=== PATIENT | female | born 1990 | race American Indian/Alaskan Native ===

== ENCOUNTER 2024-02-23 12:58 | Emergency (ER) | payer OTHER ==
[~2024-02-23] VITALS: Ht 152.4 cm; Wt 68.0 kg
[2024-02-23 14:19] LABS: SARS-CoV-2, RNA, NAAT NEGATIVE SARS CoV-2 (NEGATIVE)
[2024-02-23 14:23] LABS: INFLUENZA TYPE A Negative For Type A (NEGATIVE); INFLUENZA TYPE B Negative For Type B (NEGATIVE); RAPID GROUP A STREP negative (NEGATIVE)
[2024-02-23 14:36] LABS: ADD UA MICROSCOPIC YES; APPEARANCE,URINE CLEAR (CLEAR); BILIRUBIN,URINE NEGATIVE (NEGATIVE); COLOR,URINE YELLOW (YELLOW); GLUCOSE, URINE (UA) NEGATIVE (NEGATIVE); KETONES,URINE NEGATIVE (NEGATIVE); LEUKOCYTE ESTERASE ,URINE NEGATIVE Leu/uL (NEGATIVE); NITRATE,URINE NEGATIVE (NEGATIVE); OCCULT BLOOD,URINE NEGATIVE (NEGATIVE); PH,URINE 5.5 (5.0-8.0); PROTEIN,URINE 10 mg/dL (NEGATIVE); UROBILINOGEN,URINE 0.2 mg/dL (0.2-1.0)
[2024-02-23 14:38] LABS: MUCUS,URINE RARE LPF (None Seen); SQUAMOUS EPITHELIAL CELL,UR RARE /HPF (0-2)
[2024-02-23 14:41] LABS: HCG,QUALITATIVE URINE POSITIVE (NEGATIVE)
[2024-02-23 15:33] VITALS: BP 128/56; PULSE 87; RESP 18; O2SAT 98
== END 2024-02-23 15:37 | disposition home or self-care (01) ==
LOC: EDH 12:58
DX: O99.511 Diseases of the respiratory system complicating pregnancy, first trimester (principal); B34.9 Viral infection, unspecified; Z3A.01 Less than 8 weeks gestation of pregnancy; Z20.822 Contact with and (suspected) exposure to COVID-19
CPT/HCPCS: 81001; 81025; 87635; 87804; 87880

== ENCOUNTER → 2024-04-07 | Outpatient (CLI) | payer OTHER | END | disposition home or self-care (01) | LOC: LAB 14:50 | PROVIDERS: ATTEND Obstetrics & Gynecology | DX: Z36.9 Encounter for antenatal screening, unspecified (principal) | CPT/HCPCS: 36415; 87491; 87591; 88175 ==

== ENCOUNTER → 2024-04-23 | Outpatient (CLI) | payer OTHER ==
[2024-04-23 09:12] LABS: AMPHET/METH SCREEN,URINE NEGATIVE (NEGATIVE); BARBITURATE SCREEN, URINE NEGATIVE (NEGATIVE); BENZODIAZEPINES SCREEN,URINE NEGATIVE (NEGATIVE); CANNABINOID SCREEN,URINE NEGATIVE (NEGATIVE); COCAINE SCREEN,URINE NEGATIVE (NEGATIVE); OPIATE SCREEN,URINE NEGATIVE (NEGATIVE); PHENCYCLIDINE SCREEN,URINE NEGATIVE (NEGATIVE)
[2024-04-23 09:25] LABS: THYROID STIMULATING HORMONE 4.98 uIU/mL (0.36-3.74)
[2024-04-23 10:07] LABS: HIV 1&2 ANTIBODY Non-Reactive (Negative); HIV-1 p24 Antigen Non-Reactive (Negative)
== END | disposition home or self-care (01) ==
LOC: LAB 04-22 15:33
PROVIDERS: ATTEND Obstetrics & Gynecology
DX: Z34.90 Encounter for supervision of normal pregnancy, unspecified, unspecified trimester (principal); Z3A.09 9 weeks gestation of pregnancy
CPT/HCPCS: 36415; 80305; 82947; 84443; 86701; 87086; 87390

== ENCOUNTER → 2024-05-14 | Outpatient (CLI) | payer OTHER ==
[2024-05-14 10:30] LABS: BASOPHILS # (AUTO) 0.02 K/uL (0.00-0.20); BASOPHILS % (AUTO) 0.2 % (0.0-5.0); EOSINOPHILS # (AUTO) 0.16 K/uL (0.00-0.70); EOSINOPHILS % (AUTO) 1.9 % (0.0-8.0); HEMATOCRIT 34.8 % (36-48); IMMATURE GRANULOCYTE ABSOLUTE 0.02 K/uL (0-1); LYMPHOCYTES % (AUTO) 23.3 % (21.0-51.0); MEAN CORPUSCULAR HEMOGLOBIN 27.9 pg (27.0-33.0); MEAN CORPUSCULAR HGB CONC 33.6 g/dL (32.0-36.0); MEAN CORPUSCULAR VOLUME 83.1 fL (79-99); MONOCYTES # (AUTO) 0.3 K/uL (0.1-1.0); MONOCYTES % (AUTO) 3.7 % (3.0-13.0); NEUTROPHILS % (AUTO) 70.7 % (40.0-77.0); PLATELET COUNT (AUTO) 229 K/uL (130-400); RED BLOOD CELL COUNT(AUTO) 4.19 MIL/uL (4.00-5.50); RED CELL DISTRIBUTION WIDTH 13.9 % (11.0-15.5); WHITE BLOOD COUNT (AUTO) 8.5 K/uL (4.8-10.8)
== END | disposition home or self-care (01) ==
LOC: LAB 09:23
PROVIDERS: ATTEND Obstetrics & Gynecology
DX: Z13.79 Encounter for other screening for genetic and chromosomal anomalies (principal); Z3A.13 13 weeks gestation of pregnancy
CPT/HCPCS: 36415; 81420; 81422; 85025; 86592; 86762; 86850; 86900; 86901; 87340

== ENCOUNTER 2024-06-03 17:21 | Emergency (ER) | payer OTHER ==
[~2024-06-03] VITALS: Ht 152.4 cm; Wt 68.9 kg
[2024-06-03 17:26] VITALS: BP 113/73; PULSE 94; RESP 16; TEMP 97.7
[2024-06-03] MEDS ORDERED: ERYT1OIN7 OP (17:44)
--- NOTE | 2024-06-03 17:44 | ERN ---
ED Note History of Present Illness Stated Complaint: RT EYE DISCHARGE Chief Complaint: Eye Problems Time Seen by MD: 17:32 Time Seen by Midlevel: 17:38 Dictation: 33-year-old female with no past medical history coming in complaining of right eye burning sensation, tearing and crusting for the last three days. Patient states her daughter was sick with similar symptoms. No other complaints. Denies any vision changes, fevers. Allergies: Coded Allergies: No Known Allergies (Unverified Allergy, Unknown, 02/23/24) Home Meds Active Scripts Erythromycin Base (Erythromycin) 5 Mg/Gram (0.5 %) Oint...g., 1 APPL OP QID for 7 Days, #7 GM 0 Refills apply 1 cm ribbon into the lower conjunctival sac Prov:GUS BOB NP 06/03/24 Past Medical History Past Medical History: No Pertinent History Surgical History: Surgical History Other: WRIST Social History: Negative, Lives with family LMP: Jan 11, 2024 : 2 Para: 1 Review of System Dictation Constitutional: Negative for fever,chills, and weight loss Eyes: Negative for injury, burning sensation to right eye, redness, and discharge ENT: Negative for injury,pain or swelling Cardiovascular: Negative for chest pain, palpitations, and edema Respiratory: Negative for shortness of breath, cough, and wheezing, Abdomen/GI: Negative for abdominal pain, nausea, vomiting, diarrhea, and constipation Back: Negative for injury and pain : Negative for injury, bleeding and discharge MS/Extremity: Negative for injury and deformity Skin: Negative for rash, and discoloration Neuro: Negative for headache, weakness, numbness, tingling, and seizure Psych: Negative for suicide ideation, homicidal ideation, and hallucinations Review of Systems: was completed Initial Vital Sign VS Vital Signs Date Time Temp Pulse Resp B/P (MAP) Pulse Ox O2 Delivery O2 Flow Rate FiO2 06/03/24 17:26 97.7 94 16 113/73 100 Room Air 0 Physical Exam Dictation General: awake, alert, NAD Head/Face: Normocephalic, atraumatic Eyes: PERRL, EOMI, vision at baseline, conjunctivae is written, no discharge at this time but patient states throughout the day she has some watery/mucous it discharged in the morning she wakes up with her eye crusting along the water li ne ENT: oral cavity clear, TMs clear, no signs of infection Neck: Trachea midline, supple, no nuchal rigidity Cardiovascular: RRR, normal S1/S2, No MRGs, no JVD Respiratory: CTAB, no respiratory distress, No rales or wheezes Abdomen: Soft, non-tender, non-distended, normal bowel sounds, no guarding or rebound. Skin: Warm, dry, normal turgor, no rash MS/Extremity: Pulses equal, no cyanosis, neurovascular intact, FROM Neuro: COAx4, GCS 15, strength 5/5, CN 2-12 intact, normal cerebellar exam, normal gait, Psych: Normal behavior, mood, and affect normal ED Course ED Course Vital Signs Date Time Temp Pulse Resp B/P (MAP) Pulse Ox O2 Delivery O2 Flow Rate FiO2 06/03/24 17:26 97.7 94 16 113/73 100 Room Air 0 Medical Decision Making MDM MDM: 33-year-old female with no past medical history coming in complaining of r ight eye burning sensation, tearing and crusting for the last three days. Patient states her daughter was sick with similar symptoms. No other complaints. Denies any vision changes, fevers. Patient states initially it started off watering slightly red now states his crusting and has worsen. We will prescribe patient antibiotic ointment and have patient follow up outpatient with her PCP. Differential diagnosis: Corneal abrasion, foreign body, conjunctivitis, allergies Rationale: Tests considered and ordered secondary to shared decision making include: Previous outside records reviewed: Old ER visits. Risk of complication and/or morbidity or mortality of patient management: None Medications-Per medication reconciliation Need for hospitalization: Patient does not meet criteria for hospitalization. Need for emergency major/minor surgery: No There are no social concerns with this patient. Prescription drug management Prescriptions will include symptomatic care Patient's prior external medical records from other ER visits were reviewed by me as indicated. Prior testing and results from previous visits were reviewed. Prior tests were taken into account with medical decision making and resource utilization, independent historian/historians were used to obtain complete medical history. I independently interpreted the test that were performed, results were reviewed by me and considered findings on radiology if ordered. Medical management and examination interpretation discussions were had by me with other qualified healthcare professionals as indicated for the patient's care. DX & DISP Disposition: Discharge Departure Impression: Primary Impression: Conjunctivitis Condition: Stable Scripts Erythromycin Base (Erythromycin) 5 Mg/Gram (0.5 %) Oint...g. 1 APPL OP QID for 7 Days, #7 GM 0 Refills apply 1 cm ribbon into the lower conjunctival sac Prov: GUS BOB NP 06/03/24 Additional Instructions: You can take Tylenol or Motrin for pain management, you can apply warm compress es to the eye. Please follow up with your PCP in 1-2 days and or an ophthalmology. Referrals: SELF,REFERRAL (PCP) Time of Disposition: 17:44 I have reviewed the case, and I agree with, Diagnosis and Plan ATTESTATION BY PHYSICIAN I PERFORMED THE SUBSTANTIVE PORTION OF THE VISIT. I HAVE REVIEWED AND PERSONALLY MADE AND APPROVED THE MANAGEMENT PLAN THAT IS DOCUMENTED IN THE NOTE BY MYSELF FOR THE A PP. I ACKNOWLEDGED FOR RESPONSIBILITY FOR THE PATIENT'S MANAGEMENT PLAN. GUS BOB NP Jun 03, 2024 17:44 DOMINIQUE PEÑALOZA MD Jun 04, 2024 07:47
== END 2024-06-03 17:52 | disposition home or self-care (01) ==
LOC: EDH 17:21
DX: H10.9 Unspecified conjunctivitis (principal)
CPT/HCPCS: 99283

== ENCOUNTER → 2024-06-27 | Outpatient (CLI) | payer OTHER ==
[~2024-06-27] MED LIST: ERYT1OIN7 OP
[2024-06-27 14:11] LABS: BASOPHILS # (AUTO) 0.03 K/uL (0.00-0.20); BASOPHILS % (AUTO) 0.3 % (0.0-5.0); HEMATOCRIT 32.6 % (36-48); IMMATURE GRANULOCYTE ABSOLUTE 0.03 K/uL (0-1); LYMPHOCYTES % (AUTO) 20.6 % (21.0-51.0); MEAN CORPUSCULAR HEMOGLOBIN 28.8 pg (27.0-33.0); MEAN CORPUSCULAR VOLUME 92.9 fL (79-99); MONOCYTES # (AUTO) 0.3 K/uL (0.1-1.0); NEUTROPHILS # (AUTO) 7.3 K/uL (1.8-7.7); NEUTROPHILS % (AUTO) 74.8 % (40.0-77.0); PLATELET COUNT (AUTO) 221 K/uL (130-400); RED BLOOD CELL COUNT(AUTO) 3.51 MIL/uL (4.00-5.50); RED CELL DISTRIBUTION WIDTH 15.1 % (11.0-15.5); WHITE BLOOD COUNT (AUTO) 9.7 K/uL (4.8-10.8)
== END | disposition home or self-care (01) ==
LOC: LAB 12:46
PROVIDERS: ATTEND Obstetrics & Gynecology
DX: Z36.9 Encounter for antenatal screening, unspecified (principal); R04.0 Epistaxis
CPT/HCPCS: 36415; 84443; 85025

== ENCOUNTER 2024-07-25 14:21 | Emergency (ER) | payer OTHER ==
[~2024-07-25] VITALS: Ht 162.6 cm; Wt 71.7 kg
[2024-07-25 14:29] VITALS: BP 107/70; PULSE 98; RESP 16; TEMP 98.2; O2SAT 98
--- NOTE | 2024-07-25 14:42 | ERN ---
General Chief Complaint: Back Pain or Injury Stated Complaint: BACK PAIN OB 24WKS History of Present Illness Initial Comments Ms. Zamarripa is a 33-year-old female who came to the ER with complaints of sharp, intermittent upper backache since 3 days that is aggravated during afternoon and night and relieved with rest, denies nausea vomiting or abdominal pain or chest pain or palpitations or shortness of breath. She is currently 24 weeks . Allergies: Coded Allergies: No Known Allergies (Unverified Allergy, Unknown, 02/23/24) Home Meds Active Scripts Erythromycin Base (Erythromycin) 5 Mg/Gram (0.5 %) Oint...g., 1 APPL OP QID for 7 Days, #7 GM 0 Refills apply 1 cm ribbon into the lower conjunctival sac Prov:GUS BOB NP 06/03/24 Past Medical History Past Medical History: No Pertinent History Past Surgical History: Surgical History Other: WRIST Social History Social History: Negative, Lives with family Female( History) : 2 Para: 1 Results Laboratory and Microbiology Lab and Micro Result Laboratory Tests Test 07/25/24 14:56 07/25/24 15:30 White Blood Count 9.6 K/uL (4.8-10.8) Red Blood Count 3.32 MIL/uL (4.00-5.50) L Hemoglobin 9.6 g/dL (12.0-16.0) L Hematocrit 28.4 % (36-48) L Mean Corpuscular Volume 85.5 fL (79-99) Mean Corpuscular Hemoglobin 28.9 pg (27.0-33.0) Mean Corpuscular Hemoglobin Concent 33.8 g/dL (32.0-36.0) Red Cell Distribution Width 13.6 % (11.0-15.5) Platelet Count 211 K/uL (130-400) Mean Platelet Volume 8.5 fL (7.5-10.5) Immature Granulocyte % (Auto) 1.1 % (0-1) H Neutrophils (%) (Auto) 71.6 % (40.0-77.0) Lymphocytes (%) (Auto) 20.3 % (21.0-51.0) L Monocytes (%) (Auto) 5.2 % (3.0-13.0) Eosinophils (%) (Auto) 1.6 % (0.0-8.0) Basophils (%) (Auto) 0.2 % (0.0-5.0) Neutrophils # (Auto) 6.9 K/uL (1.8-7.7) Lymphocytes # (Auto) 2.0 K/uL (1.0-4.8) Monocytes # (Auto) 0.5 K/uL (0.1-1.0) Eosinophils # (Auto) 0.15 K/uL (0.00-0.70) Basophils # (Auto) 0.02 K/uL (0.00-0.20) Absolute Immature Granulocyte (auto 0.11 K/uL (0-1) Nucleated Red Blood Cells 0.0 % (0.0-0.19) Sodium Level 139 mmol/L (136-145) Potassium Level 3.4 mmol/L (3.5-5.1) L Chloride Level 104 mmol/L (101-111) Carbon Dioxide Level 28 mmol/L (21-32) Blood Urea Nitrogen 6 mg/dL (7-18) L Creatinine 0.5 mg/dL (0.5-1.0) Glomerular Filtration Rate Calc 128 mL/min (>90) Random Glucose 101 mg/dL (70-105) Total Calcium 8.4 mg/dL (8.5-10.1) L Total Bilirubin 0.3 mg/dL (0.2-1.0) Aspartate Amino Transf (AST/SGOT) 16 U/L (10-37) Alanine Aminotransferase (ALT/SGPT) 18 U/L (12-78) Alkaline Phosphatase 102 U/L (50-136) Total Protein 6.0 g/dL (6.0-8.3) Albumin 2.3 g/dL (3.5-5.0) L Urine Color LIGHT-YELLOW (YELLOW) Urine Appearance CLEAR (CLEAR) Urine pH 6.5 (5.0-8.0) Urine Specific [place] 1.012 (1.001-1.031) Urine Protein NEGATIVE mg/dL (NEGATIVE) Urine Glucose (UA) NEGATIVE mg/dL (NEGATIVE) Urine Ketones NEGATIVE mg/dL (NEGATIVE) Urine Occult Blood NEGATIVE (NEGATIVE) Urine Nitrate NEGATIVE (NEGATIVE) Urine Bilirubin NEGATIVE mg/dL (NEGATIVE) Urine Urobilinogen 0.2 mg/dL (0.2-1.0) Urine Leukocyte Esterase NEGATIVE Adrienne/uL MDM The differential diagnosis entertained at this time includes: Muscle sprain, gallstones, renal stones, acute pancreatitis A full comprehensive workup will be performed to identify the underlying problem. The patient will be monitored closely throughout the emergency department stay. The disposition will depend on the workup results and frequent re-evaluations MDM: Rationale: Tests considered and ordered secondary to shared decision making include: CBC, CMP, Urinalysisy Risk of complication and/or morbidity or mortality of patient management: None Medications-Per medication reconciliation Need for hospitalization: Patient does meet criteria for hospitalization. Need for emergency major/minor surgery: No There are no social concerns with this patient. Prescription drug management Prescriptions will include symptomatic care Patient's prior external medical records from other ER visits were reviewed by me as indicated. Prior testing and results from previous visits were reviewed. Prior tests were taken into account with medical decision making and resource utilization, independent historian/historians were used to obtain complete medical history. I independently interpreted the test that were performed, results were reviewed by me and considered findings on radiology if ordered. Medical management and examination interpretation discussions were had by me with other qualified healthcare professionals as indicated for the patient's care. ED Course Orders Procedure Category Date Status Time Cbc With Differential LAB 07/25/24 Complete 14:39 Comprehensive LAB 07/25/24 Complete Metabolic Panel 14:39 Urinalysis Profile LAB 07/25/24 Complete 14:39 Mag/Alum/Simeth 30ml PHA 07/25/24 Complete (Maalox Plus 30ml) 15:00 Acetaminophen 325 Tab PHA 07/25/24 In Process (Tylenol 325mg Tab 15:19 Current Medications Medications (Trade) Dose Ordered Sig/Patricia Route PRN Reason Start Time Stop Time Status Last Admin Dose Admin Acetaminophen (TYLenol 325MG TAB) 650 mg ONCE PO 07/25/24 15:19 07/25/24 19:30 07/25/24 15:33 Al Hydroxide/Mg Hydroxide (MAALox PLUS 30ML) 30 ml ONCE ONCE PO 07/25/24 15:00 07/25/24 15:01 DC 07/25/24 15:33 Vital Signs Date Time Temp Pulse Resp B/P (MAP) Pulse Ox O2 Delivery O2 Flow Rate FiO2 07/25/24 14:29 98.2 98 16 107/70 98 Room Air* 0 21 07/25/24 14:29 98.2 98 16 107/70 98 Room Air 0 DX & DISP Disposition: Discharge Departure Impression: Primary Impression: Muscle strain Critical Time: 30 minutes Condition: Stable Scripts Lidocaine (Lidocaine) 4 % Adh..patch 1 PATCH TP DAILY for 3 Days, #3 PATCH 0 Refills Prov: SUZANNE SEE MD 07/25/24 Pantoprazole Sodium (Protonix) 40 Mg Ectab 40 MG PO DAILY for 10 Days, #10 TAB.EC Prov: SUZANNE SEE MD 07/25/24 Acetaminophen (Acetaminophen ER) 650 Mg Tablet.er 650 MG PO QIDP PRN for PAIN LEVEL 4 TO 6 for 5 Days, #20 TAB Prov: SUZANNE SEE MD 07/25/24 Additional Instructions: Patient and the caregiver have been informed of all the diagnostic tests and the imaging conducted during the today's visit to the emergency room and has verbalized understanding of the results I have personally reviewed and interpreted all diagnostic exams performed here in the ER today as well as the vital signs documented by the nursing staff. The patient is now being di scharged to home and should follow up with the primary care physician or the specialist as directed by the ER staff. Follow-up with primary care provider in 1 to 2 days. Take medications as directed here in the emergency room. Okay to continue home medications unless otherwise discussed during your visit in the emergency room today. Return to your nearest emergency room if symptoms worsen or if there is no improvement. Call 911 if you need immediate assistance. Referrals: JOYCE GAINES MD (PCP) ATTESTATION BY PHYSICIAN I have seen and examined the patient. I reviewed the documentation, medical decision making, and treatment plan as noted by the resident provider above. I agree with the findings and plan of care. Fariba Ray MD, NIHITHA MD Jul 25, 2024 14:42
[2024-07-25 15:03] LABS: BASOPHILS # (AUTO) 0.02 K/uL (0.00-0.20); BASOPHILS % (AUTO) 0.2 % (0.0-5.0); EOSINOPHILS # (AUTO) 0.15 K/uL (0.00-0.70); EOSINOPHILS % (AUTO) 1.6 % (0.0-8.0); HEMATOCRIT 28.4 % (36-48); IMMATURE GRANULOCYTE ABSOLUTE 0.11 K/uL (0-1); LYMPHOCYTES % (AUTO) 20.3 % (21.0-51.0); MEAN CORPUSCULAR HEMOGLOBIN 28.9 pg (27.0-33.0); MEAN CORPUSCULAR HGB CONC 33.8 g/dL (32.0-36.0); MEAN CORPUSCULAR VOLUME 85.5 fL (79-99); MONOCYTES # (AUTO) 0.5 K/uL (0.1-1.0); MONOCYTES % (AUTO) 5.2 % (3.0-13.0); NEUTROPHILS # (AUTO) 6.9 K/uL (1.8-7.7); NEUTROPHILS % (AUTO) 71.6 % (40.0-77.0); PLATELET COUNT (AUTO) 211 K/uL (130-400); RED BLOOD CELL COUNT(AUTO) 3.32 MIL/uL (4.00-5.50); RED CELL DISTRIBUTION WIDTH 13.6 % (11.0-15.5); WHITE BLOOD COUNT (AUTO) 9.6 K/uL (4.8-10.8)
[2024-07-25 15:23] LABS: CREATININE 0.5 mg/dL (0.5-1.0); POTASSIUM 3.4 mmol/L (3.5-5.1)
[2024-07-25 15:27] LABS: ALBUMIN 2.3 g/dL (3.5-5.0); BILIRUBIN,TOTAL 0.3 mg/dL (0.2-1.0)
[2024-07-25] MEDS: acetaMINOPHEN 325 MG TAB PO SCH (15:33)
[2024-07-25] MEDS: MAG/ALUM/SIMETH 30 ML UDCUP PO ONE (15:33)
[2024-07-25 15:47] LABS: APPEARANCE,URINE CLEAR (CLEAR); BILIRUBIN,URINE NEGATIVE (NEGATIVE); COLOR,URINE LIGHT-YELLOW (YELLOW); GLUCOSE, URINE (UA) NEGATIVE (NEGATIVE); KETONES,URINE NEGATIVE (NEGATIVE); LEUKOCYTE ESTERASE ,URINE NEGATIVE Leu/uL (NEGATIVE); NITRATE,URINE NEGATIVE (NEGATIVE); OCCULT BLOOD,URINE NEGATIVE (NEGATIVE); PH,URINE 6.5 (5.0-8.0); PROTEIN,URINE NEGATIVE (NEGATIVE); UROBILINOGEN,URINE 0.2 mg/dL (0.2-1.0)
[2024-07-25 15:49] LABS: ADD UA MICROSCOPIC NO
[2024-07-25] MEDS ORDERED: PANT40TA55 PO (16:11)
[2024-07-25] MEDS ORDERED: ACET-2893 PO (16:11)
[2024-07-25] MEDS ORDERED: LIDO1ADH82 TP (16:11)
== END 2024-07-25 16:40 | disposition home or self-care (01) ==
LOC: EDH 14:21
DX: O26.892 Other specified pregnancy related conditions, second trimester (principal); S29.012A Strain of muscle and tendon of back wall of thorax, initial encounter; Z3A.24 24 weeks gestation of pregnancy; X58.XXXA Exposure to other specified factors, initial encounter; Y93.89 Activity, other specified; Y92.89 Other specified places as the place of occurrence of the external cause; Y99.8 Other external cause status
CPT/HCPCS: 36415; 80053; 81003; 85025; 99283

== ENCOUNTER → 2024-08-01 | Outpatient (CLI) | payer OTHER ==
[~2024-08-01] MED LIST changes: +ACET-2893 PO; +LIDO1ADH82 TP; +PANT40TA55 PO
[2024-08-01 07:59] LABS: HEMATOCRIT 29.8 % (36-48); MEAN CORPUSCULAR HEMOGLOBIN 28.9 pg (27.0-33.0); MEAN CORPUSCULAR HGB CONC 33.6 g/dL (32.0-36.0); MEAN CORPUSCULAR VOLUME 86.1 fL (79-99); PLATELET COUNT (AUTO) 215 K/uL (130-400); RED BLOOD CELL COUNT(AUTO) 3.46 MIL/uL (4.00-5.50); RED CELL DISTRIBUTION WIDTH 13.6 % (11.0-15.5); WHITE BLOOD COUNT (AUTO) 10.1 K/uL (4.8-10.8)
[2024-08-01 08:15] LABS: ALBUMIN 2.4 g/dL (3.5-5.0); BILIRUBIN,TOTAL 0.2 mg/dL (0.2-1.0); CREATININE 0.4 mg/dL (0.5-1.0); POTASSIUM 3.8 mmol/L (3.5-5.1); TOTAL PROTEIN, SERUM 6.3 g/dL (6.0-8.3)
[2024-08-01 08:56] LABS: EOSINOPHILS % (MANUAL) 3 % (1-6); LYMPHOCYTES % (MANUAL) 24 % (22-44); MAN.DIFF COMMENT-IMPRESSION MANUAL DIFFERENTIAL; MONOCYTES % (MANUAL) 1 % (2-9); PLATELET MORPHOLOGY COMMENT ADEQUATE; SEGMENTED NEUTROPHILS % 72 % (40-70); TOTAL CELLS COUNTED 100
== END | disposition home or self-care (01) ==
LOC: LAB 07:36
PROVIDERS: ATTEND Obstetrics & Gynecology
DX: O26.642 Intrahepatic cholestasis of pregnancy, second trimester (principal); Z3A.00 Weeks of gestation of pregnancy not specified
CPT/HCPCS: 36415; 80053; 82150; 83690; 85025

== ENCOUNTER → 2024-08-05 | Outpatient (CLI) | payer OTHER ==
--- NOTE | 2024-08-05 09:04 | HMCIMG ---
US ABDOMINAL RUQ\E\LTD HISTORY: Intrahepatic cholestasis of COMPARISON: None TECHNIQUE: Right upper quadrant abdominal ultrasound study was performed. FINDINGS: The study is limited due to patient's underlying and overlying bowel gas. There is intrauterine gestation with estimated gestational age of 28 weeks. heart rate is 154 bpm. The visualized portion of the pancreas is within normal limits. Liver measures 13.3 cm. Liver is echogenic consistent with liver parenchymal disease. Sludge material is seen in the gallbladder. No gallstone is seen. Common duct measures 4 mm. No evidence of gallbladder wall thickening is seen. Right kidney measures 10.2 x 5 x 4.4 cm. No hydronephrosis is seen of the right kidney. IMPRESSION: 1. Sludge material in the gallbladder. No gallstones or ductal dilatation is seen. 2. No hydronephrosis is seen. 3. Viable intrauterine .
== END | disposition home or self-care (01) ==
LOC: RAH 08:00
PROVIDERS: ATTEND Obstetrics & Gynecology
DX: O26.642 Intrahepatic cholestasis of pregnancy, second trimester (principal); K82.8 Other specified diseases of gallbladder; Z3A.28 28 weeks gestation of pregnancy
CPT/HCPCS: 76705

== ENCOUNTER 2024-08-08 16:24 | Emergency (ER) | payer OTHER ==
[~2024-08-08] VITALS: Ht 152.4 cm; Wt 74.8 kg
--- NOTE | 2024-08-08 16:35 | NUR ---
PLACED PT IN [facility] HEART MONITOR.
[2024-08-08 16:50] LABS: BASOPHILS # (AUTO) 0.04 K/uL (0.00-0.20); BASOPHILS % (AUTO) 0.3 % (0.0-5.0); EOSINOPHILS # (AUTO) 0.09 K/uL (0.00-0.70); EOSINOPHILS % (AUTO) 0.8 % (0.0-8.0); HEMATOCRIT 31.5 % (36-48); IMMATURE GRANULOCYTE ABSOLUTE 0.11 K/uL (0-1); LYMPHOCYTES # (AUTO) 1.8 K/uL (1.0-4.8); LYMPHOCYTES % (AUTO) 15.9 % (21.0-51.0); MEAN CORPUSCULAR VOLUME 85.4 fL (79-99); MONOCYTES # (AUTO) 0.5 K/uL (0.1-1.0); MONOCYTES % (AUTO) 4.6 % (3.0-13.0); NEUTROPHILS % (AUTO) 77.5 % (40.0-77.0); PLATELET COUNT (AUTO) 258 K/uL (130-400); RED BLOOD CELL COUNT(AUTO) 3.69 MIL/uL (4.00-5.50); RED CELL DISTRIBUTION WIDTH 13.4 % (11.0-15.5); WHITE BLOOD COUNT (AUTO) 11.6 K/uL (4.8-10.8)
[2024-08-08] MEDS: 0.9%NACL 1000ML 1,000 ML IV ONE ×2 (16:55→16:57)
[2024-08-08] MEDS: ondanSETRON 4MG INJ IVP ONE (16:57)
[2024-08-08] MEDS: FAMOTIDINE 20MG VIAL IV ONE (16:57)
[2024-08-08] MEDS: morPHINE 2 MG SYG IVP ONE (16:58)
[2024-08-08 16:59] LABS: CREATININE 0.5 mg/dL (0.5-1.0); POTASSIUM 3.3 mmol/L (3.5-5.1)
[2024-08-08 17:04] LABS: ALBUMIN 2.5 g/dL (3.5-5.0); BILIRUBIN,DIRECT 0.1 mg/dL (0.0-0.3); BILIRUBIN,TOTAL 0.4 mg/dL (0.2-1.0); TOTAL PROTEIN, SERUM 7.2 g/dL (6.0-8.3)
--- NOTE | 2024-08-08 17:08 | NUR ---
DR. BURK SPOKE TO DR. ANDERSON (GLUE MOUNTER OPERATOR) IN REGARDS TO PT.
--- NOTE | 2024-08-08 17:14 | HMCIMG ---
US OB OSMAN/POSITION HISTORY: Abdominal pain COMPARISON: None TECHNIQUE: Limited obstetrical ultrasound study was performed. FINDINGS: There is single intrauterine gestation with heart rate of 152 bpm. activity was observed. Fetus is in cephalic presentation with longitudinal lie. OSMAN is increased at 39.5 cm. IMPRESSION: 1. There is single intrauterine gestation with heart rate of 152 bpm. OSMAN is is increased at 39.5 cm.
[2024-08-08 18:10] LABS: APPEARANCE,URINE CLOUDY (CLEAR); BILIRUBIN,URINE NEGATIVE (NEGATIVE); COLOR,URINE LIGHT-YELLOW (YELLOW); GLUCOSE, URINE (UA) NEGATIVE (NEGATIVE); KETONES,URINE NEGATIVE (NEGATIVE); LEUKOCYTE ESTERASE ,URINE NEGATIVE Leu/uL (NEGATIVE); NITRATE,URINE NEGATIVE (NEGATIVE); OCCULT BLOOD,URINE NEGATIVE (NEGATIVE); PH,URINE 6.5 (5.0-8.0); PROTEIN,URINE NEGATIVE (NEGATIVE); UROBILINOGEN,URINE 0.2 mg/dL (0.2-1.0)
--- NOTE | 2024-08-08 18:15 | ERN ---
General Chief Complaint: OB>20 weeks gest. Stated Complaint: 27WKS ABDOMINAL PAIN Time Seen by MD: 17:00 History of Present Illness Initial Comments 33-year-old female at 27 weeks of gestational age came in for right upper quadrant pain with nausea. Patient denies any pressure in her lower abdomen there was no fluid leak. Patient otherwise has no concerns. Allergies: Coded Allergies: No Known Allergies (Unverified Allergy, Unknown, 02/23/24) Home Meds Active Scripts Lidocaine (Lidocaine) 4 % Adh..patch, 1 PATCH TP DAILY for 3 Days, #3 PATCH 0 Refills Prov:SUZANNE SEE MD 07/25/24 Pantoprazole Sodium (Protonix) 40 Mg Ectab, 40 MG PO DAILY for 10 Days, #10 TAB.EC Prov:SUZANNE SEE MD 07/25/24 Acetaminophen (Acetaminophen ER) 650 Mg Tablet.er, 650 MG PO QIDP PRN for PAIN LEVEL 4 TO 6 for 5 Days, #20 TAB Prov:SUZANNE SEE MD 07/25/24 Erythromycin Base (Erythromycin) 5 Mg/Gram (0.5 %) Oint...g., 1 APPL OP QID for 7 Days, #7 GM 0 Refills apply 1 cm ribbon into the lower conjunctival sac Prov:GUS BOB NP 06/03/24 Past Medical History Past Medical History: Gallstones Past Surgical History: Surgical History Other: WRIST Social History Social History: Negative, Lives with family Female( History) LMP: Feb 13, 2025 : 2 Para: 1 Aborts: 0 ROS Dictation CONSTITUTIONAL: Negative except for HPI HEAD/FACE: Negative except for HPI EENT: Negative except for HPI RESPIRATORY: Negative except for HPI GASTROINTESTINAL/ABDOMINAL: Negative except for HPI GENITOURINARY: Negative except for HPI MUSCULOSKELETAL: Negative except for HPI INTEGUMENTARY: Negative except for HPI NEUROLOGICAL/PSYCH: Negative except for HPI HEMATOLOGIC/LYMPHATIC: Negative except for HPI All Systems Negative, Except as noted above. 13 point review of systems assessed and all negative except for above. Physical Exam Physical Exam Dictation Vital Signs reviewed General Appearance: Alert, oriented x 3, no acute distress, well developed, nourished. Head and Face: non-traumatic. Eyes: PERRL, pink conjunctivas, eyelid no trauma, anterior chamber with arcus senilis. Ears: Pinnas intact and no signs of trauma or erythema ear canals clear and no discharge TM no erythema Nose: No discharge, no bleeding. Oropharynx: Mouth normal, tongue pink, pharynx clear,no erythema, tonsils no exudates, no abscesses noted, mucous membrane moist Neck: Supple, non-tender, no thyromegaly, no masses, no JVD, no bruits Breast:Deferred Chest:No tenderness, no crepitus, no paradoxical movement, no retractions Lungs:Clear, well-ventilated, symmetric, no rales, no wheezing, no rhonchi, no stridor, good breath sounds bilaterally Heart: Regular rate, regular rhythm, no murmur, no gallops Vascular: no peripheral edema, Abdomen: Soft, positive bowel sounds, nondistended, no guarding, nontender, no rebound, no masses no hepatomegaly, no splenomegaly, no Merchant's sign, no hernias. Rectal: Deferred Genital: Deferred Neurological: Normal speech, motor function intact, sensory function intact Musculoskeletal: Neck nontender, full range of motion, back nontender, full range of motion, Extremities: nontender, full range of motion Skin: Color pink, dry, no turgor, no rash, no lacerations, no abrasions, no contusions. Lymphatic: Deferred Results Laboratory and Microbiology Lab and Micro Result Laboratory Tests Test 08/08/24 16:40 08/08/24 17:39 White Blood Count 11.6 K/uL (4.8-10.8) H Red Blood Count 3.69 MIL/uL (4.00-5.50) L Hemoglobin 10.7 g/dL (12.0-16.0) L Hematocrit 31.5 % (36-48) L Mean Corpuscular Volume 85.4 fL (79-99) Mean Corpuscular Hemoglobin 29.0 pg (27.0-33.0) Mean Corpuscular Hemoglobin Concent 34.0 g/dL (32.0-36.0) Red Cell Distribution Width 13.4 % (11.0-15.5) Platelet Count 258 K/uL (130-400) Mean Platelet Volume 8.5 fL (7.5-10.5) Immature Granulocyte % (Auto) 0.9 % (0-1) Neutrophils (%) (Auto) 77.5 % (40.0-77.0) H Lymphocytes (%) (Auto) 15.9 % (21.0-51.0) L Monocytes (%) (Auto) 4.6 % (3.0-13.0) Eosinophils (%) (Auto) 0.8 % (0.0-8.0) Basophils (%) (Auto) 0.3 % (0.0-5.0) Neutrophils # (Auto) 9.0 K/uL (1.8-7.7) H Lymphocytes # (Auto) 1.8 K/uL (1.0-4.8) Monocytes # (Auto) 0.5 K/uL (0.1-1.0) Eosinophils # (Auto) 0.09 K/uL (0.00-0.70) Basophils # (Auto) 0.04 K/uL (0.00-0.20) Absolute Immature Granulocyte (auto 0.11 K/uL (0-1) Nucleated Red Blood Cells 0.0 % (0.0-0.19) Sodium Level 131 mmol/L (136-145) L Potassium Level 3.3 mmol/L (3.5-5.1) L Chloride Level 98 mmol/L (101-111) L Carbon Dioxide Level 25 mmol/L (21-32) Blood Urea Nitrogen 7 mg/dL (7-18) Creatinine 0.5 mg/dL (0.5-1.0) Glomerular Filtration Rate Calc 128 mL/min (>90) Random Glucose 109 mg/dL (70-105) H Total Calcium 8.8 mg/dL (8.5-10.1) Total Bilirubin 0.4 mg/dL (0.2-1.0) Direct Bilirubin 0.1 mg/dL (0.0-0.3) Aspartate Amino Transf (AST/SGOT) 19 U/L (10-37) Alanine Aminotransferase (ALT/SGPT) 25 U/L (12-78) Alkaline Phosphatase 143 U/L (50-136) H Total Protein 7.2 g/dL (6.0-8.3) Albumin 2.5 g/dL (3.5-5.0) L Lipase 42 U/L (16-77) Urine Color LIGHT-YELLOW (YELLOW) Urine Appearance CLOUDY (CLEAR) H Urine pH 6.5 (5.0-8.0) Urine Specific [place] 1.004 (1.001-1.031) Urine Protein NEGATIVE mg/dL (NEGATIVE) Urine Glucose (UA) NEGATIVE mg/dL (NEGATIVE) Urine Ketones NEGATIVE mg/dL (NEGATIVE) Urine Occult Blood NEGATIVE (NEGATIVE) Urine Nitrate NEGATIVE (NEGATIVE) Urine Bilirubin NEGATIVE mg/dL (NEGATIVE) Urine Urobilinogen 0.2 mg/dL (0.2-1.0) Urine Leukocyte Esterase NEGATIVE Adrienne/uL Urine RBC 2-5 /HPF (0-1) H Urine WBC 2-5 /HPF (0-1) H Urine Squamous Epithelial Cells MOD /HPF (0-2) Urine Bacteria MANY /HPF (None Seen) Urine Hyaline Casts 2-5 /LPF (0-1 /LPF) H MDM MDM: Differential diagnosis: Rationale: Tests considered and ordered secondary to shared decision making include: Previous outside records reviewed: Old ER visits. Risk of complication and/or morbidity or mortality of patient management: None Medications-Per medication reconciliation Need for hospitalization: Patient does meet criteria for hospitalization. Need for emergency major/minor surgery: No There are no social concerns with this patient. Prescription drug management Prescriptions will include symptomatic care Patient's prior external medical records from other ER visits were reviewed by me as indicated. Prior testing and results from previous visits were reviewed. Prior tests were taken into account with medical decision making and resource utilization, independent historian/historians were used to obtain complete medical history. I independently interpreted the test that were performed, results were reviewed by me and considered findings on radiology if ordered. Medical management and examination interpretation discussions were had by me with other qualified healthcare professionals as indicated for the patient's care. Patient will be transferred to [facility] for obstetric evaluation and NST. Patient was informed however she states that she wants to go to [facility]. 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 and since patient is a high-risk MFM patient it was strongly recommended by her grain distributor that she goes to [facility] where she can get continuity of care. This has been discussed with the patient in detail who now agrees to go to [facility] for further obstetric care. Patient ultrasound is concerning for polyhydramnios there is viable intrauterine with a heart rate in 150s however the OSMAN is elevated. This has been informed to patient and patient will be transferred for further management. Patient understands and agrees with plan of care. ED Course Orders Procedure Category Date Status Time Cbc With Differential LAB 08/08/24 Complete 16:30 Basic Metabolic Panel LAB 08/08/24 Complete 16:30 Hepatic Function Panel LAB 08/08/24 Complete 16:30 Lipase LAB 08/08/24 Complete 16:30 Urinalysis Profile LAB 08/08/24 Complete 16:30 0.9%Nacl 1000ml (Ns PHA 08/08/24 Complete 1000ml) 17:00 Famotidine 20mg Vial PHA 08/08/24 Complete (Pepcid 20mg Vial) 17:00 Ondansetron 4mg Inj PHA 08/08/24 Complete (Zofran 4mg Inj) 17:00 0.9%Nacl 1000ml (Ns PHA 08/08/24 Complete 1000ml) 17:00 Us Ob Osman/Position US 08/08/24 Resulted 16:32 Morphine 2mg Syg PHA 08/08/24 Complete (Morphine 2mg Syg) 17:00 Culture Urine JORDYN 08/08/24 Logged 18:35 Current Medications Medications (Trade) Dose Ordered Sig/Patricia Route PRN Reason Start Time Stop Time Status Last Admin Dose Admin Famotidine (Pepcid 20mg Vial) 20 mg ONCE ONCE IV 08/08/24 17:00 08/08/24 17:01 DC 08/08/24 16:57 Morphine Sulfate (morPHINE 2MG SYG) 1 mg ONCE ONCE IVP 08/08/24 17:00 08/08/24 17:01 DC 08/08/24 16:58 Ondansetron HCl (zoFRAN 4MG INJ) 4 mg ONCE ONCE IVP 08/08/24 17:00 08/08/24 17:01 DC 08/08/24 16:57 Sodium Chloride 1,000 ml @ 0 mls/hr ONCE ONCE IV 08/08/24 17:00 08/08/24 17:01 DC Sodium Chloride 1,000 ml @ 0 mls/hr ONCE ONCE IV 08/08/24 17:00 08/08/24 17:01 DC 08/08/24 16:57 Vital Signs Date Time Temp Pulse Resp B/P (MAP) Pulse Ox O2 Delivery O2 Flow Rate FiO2 08/08/24 18:42 98.1 100 17 112/66 99 Room Air* 0 21 08/08/24 17:44 99 17 105/72 99 Room Air* 0 21 08/08/24 16:52 98.1 120 20 111/72 99 Room Air* 0 21 08/08/24 16:28 98.2 121 20 100/73 99 Room Air 0 DX & DISP Disposition: Transfer Departure Impression: Primary Impression: Third trimester Additional Impressions: Right upper quadrant abdominal pain, High risk case management patient Condition: Stable Referrals: JUSTYNA ANDERSON MD (PCP) CHERYL BURK MD Aug 08, 2024 18:15
[2024-08-08 18:16] LABS: ADD UA MICROSCOPIC YES
[2024-08-08 18:21] LABS: BACTERIA,URINE MANY /HPF (None Seen); SQUAMOUS EPITHELIAL CELL,UR MOD /HPF (0-2)
[2024-08-08 18:42] VITALS: BP 112/66; PULSE 100; RESP 17; TEMP 98.1; O2SAT 99
--- NOTE | 2024-08-08 19:00 | NUR ---
SPOKE TO [facility] IN REGARDS TO PT.
--- NOTE | 2024-08-08 19:02 | NUR ---
SPOKE TO LINDA CONWAY AT [facility] ([facility]) FOR REPORT.
--- NOTE | 2024-08-08 19:07 | NUR ---
[facility] BY TO OTR [employer] PT.
== END 2024-08-08 19:07 | disposition short-term general hospital (02) ==
LOC: EDH 16:24
DX: O26.893 Other specified pregnancy related conditions, third trimester (principal); R10.11 Right upper quadrant pain; Z79.899 Other long term (current) drug therapy; Z3A.27 27 weeks gestation of pregnancy
CPT/HCPCS: 99285; 96374; 96375; 96361; 80076; 80048; 83690; 85025; 87086; 81001; 36415; 76815; J3490; J2270; J7030; J2405

== ENCOUNTER → 2024-08-21 | Outpatient (CLI) | payer OTHER ==
[2024-08-21 13:48] LABS: BASOPHILS # (AUTO) 0.03 K/uL (0.00-0.20); BASOPHILS % (AUTO) 0.3 % (0.0-5.0); EOSINOPHILS # (AUTO) 0.06 K/uL (0.00-0.70); EOSINOPHILS % (AUTO) 0.5 % (0.0-8.0); HEMATOCRIT 32.6 % (36-48); IMMATURE GRANULOCYTE ABSOLUTE 0.16 K/uL (0-1); LYMPHOCYTES # (AUTO) 1.6 K/uL (1.0-4.8); LYMPHOCYTES % (AUTO) 13.9 % (21.0-51.0); MEAN CORPUSCULAR HEMOGLOBIN 28.2 pg (27.0-33.0); MEAN CORPUSCULAR HGB CONC 32.5 g/dL (32.0-36.0); MEAN CORPUSCULAR VOLUME 86.7 fL (79-99); MONOCYTES # (AUTO) 0.6 K/uL (0.1-1.0); MONOCYTES % (AUTO) 5.2 % (3.0-13.0); NEUTROPHILS # (AUTO) 8.8 K/uL (1.8-7.7); NEUTROPHILS % (AUTO) 78.7 % (40.0-77.0); PLATELET COUNT (AUTO) 284 K/uL (130-400); RED BLOOD CELL COUNT(AUTO) 3.76 MIL/uL (4.00-5.50); RED CELL DISTRIBUTION WIDTH 15.5 % (11.0-15.5); WHITE BLOOD COUNT (AUTO) 11.2 K/uL (4.8-10.8)
== END | disposition home or self-care (01) ==
LOC: LAB 12:47
PROVIDERS: ATTEND Obstetrics & Gynecology
DX: O09.893 Supervision of other high risk pregnancies, third trimester (principal); Z36.9 Encounter for antenatal screening, unspecified; Z3A.29 29 weeks gestation of pregnancy
CPT/HCPCS: 36415; 85025

== ENCOUNTER → 2025-05-06 | Outpatient (CLI) | payer OTHER ==
[~2025-05-06] MED LIST changes: -ACET-2893 PO; +ACET-3797 PO
[2025-05-06 09:38] LABS: IMMATURE GRANULOCYTE ABSOLUTE 0.00 K/uL (0-1); NUCLEATED RED BLOOD CELLS 0.0 % (0.0-0.19); PLATELET COUNT (AUTO) 206 K/uL (130-400); RED BLOOD CELL COUNT(AUTO) 4.45 MIL/uL (4.00-5.50); RED CELL DISTRIBUTION WIDTH 12.9 % (11.0-15.5); WHITE BLOOD COUNT (AUTO) 5.1 K/uL (4.8-10.8)
[2025-05-06 09:47] LABS: APPEARANCE,URINE CLEAR (CLEAR); GLUCOSE, URINE (UA) NEGATIVE (NEGATIVE); LEUKOCYTE ESTERASE ,URINE NEGATIVE Leu/uL (NEGATIVE); NITRATE,URINE NEGATIVE (NEGATIVE); OCCULT BLOOD,URINE NEGATIVE (NEGATIVE)
[2025-05-06 09:48] LABS: ADD UA MICROSCOPIC NO
[2025-05-06 09:48] LABS: ERYTHROCYTE SEDIMENTATION RATE 6 MM/HR (0-20)
[2025-05-06 10:18] LABS: ASPARTATE AMINOTRANSFERASE 22.0 U/L (10-37); CREATININE 0.6 mg/dL (0.5-1.0); GLOMERULAR FILTR. RATE CALC 121.0 mL/min (>90); GLUCOSE,RANDOM 99.0 mg/dL (70-105); SODIUM SERUM 140.0 mmol/L (136-145); TOTAL PROTEIN, SERUM 7.2 g/dL (6.0-8.3); UREA NITROGEN, BLOOD 14.0 mg/dL (7-18)
== END | disposition home or self-care (01) ==
LOC: LAB 08:55
PROVIDERS: ATTEND Internal Medicine
DX: R53.83 Other fatigue (principal); M50.122 Cervical disc disorder at C5-C6 level with radiculopathy; M62.838 Other muscle spasm; Z13.1 Encounter for screening for diabetes mellitus
CPT/HCPCS: 36415; 80053; 81003; 82728; 83036; 84443; 85025; 85651; 86140